=== PATIENT | male | born 1990 | race Caucasian/White ===

== ENCOUNTER 2024-05-08 01:43 | Emergency (ER) | payer MEDICAID ==
[~2024-05-08] VITALS: Ht 190.5 cm; Wt 92.9 kg
[2024-05-08 01:56] VITALS: BP 124/76; PULSE 94; RESP 18; TEMP 98.1; O2SAT 100
== END 2024-05-08 03:13 | disposition left against medical advice (07) ==
LOC: ER 01:44
DX: S61.210A Laceration without foreign body of right index finger without damage to nail, initial encounter (principal); Z53.21 Procedure and treatment not carried out due to patient leaving prior to being seen by health care provider; W26.8XXA Contact with other sharp object(s), not elsewhere classified, initial encounter; Y93.89 Activity, other specified; Y92.89 Other specified places as the place of occurrence of the external cause; Y99.8 Other external cause status
CPT/HCPCS: 99281